=== PATIENT | female | born 1965 | race Caucasian/White ===

== ENCOUNTER 2017-11-11 18:45 | Emergency (ER) | payer BC, OTHER ==
[2017-11-11 18:58] VITALS: BP 139/77
[2017-11-11] MEDS ORDERED: Ketorolac 30 MG/ML SDV IVPUSH ONE (19:20)
--- NOTE | 2017-11-11 19:24 | EDM.PDOC ---
ED HPI GENERAL MEDICAL PROBLEM - General Chief Complaint: Chest Pain Stated Complaint: [id number] CHEST PAIN HEART FLUTTERING Time Seen by Provider: 11/11/17 19:22 Source of Information: Reports: Patient History Limitations: Reports: No Limitations - History of Present Illness INITIAL COMMENTS - FREE TEXT/NARRATIVE: gives few weeks h/o on-off sharp pain mid chest going to her back. hurts more @ night and deep breathing. today seems to be worse. Mid-Sternal Chest Pain Score (Numeric/FACES): 9 - Related Data Allergies Allergy/AdvReac Type Severity Reaction Status Date / Time fenofibrate Allergy Muscle Verified 11/11/17 19:02 Aches Penicillins Allergy Cannot Verified 11/11/17 19:02 Remember simvastatin Allergy Muscle Verified 11/11/17 19:02 Aches venlafaxine HCl Allergy Cannot Verified 11/11/17 19:02 [From Effexor] Remember Home Meds: Home Meds Estrogens, Conjugated [Premarin Vaginal Crm] 1 applic TOP ASDIRECTED PRN [History] Estrogens, Conjugated [Premarin] 0.3 mg PO DAILY 05/25/15 [History] Multivitamin [Multivitamins] 1 tab PO DAILY 05/25/15 [History] Red Yeast Rice 600 mg PO DAILY 05/25/15 [History] Ubidecarenone [Coenzyme Q10] 1 cap PO DAILY 05/25/15 [History] Aspirin [Adult Low Dose Aspirin EC] 81 mg PO DAILY 05/26/15 [History] Calcium Carbonate/Vitamin D3 [Calcium 600 + Vit D Tablet] 750 tab PO BID [History] Omeprazole 1 tab PO DAILY 05/27/15 [History] Past Medical History Other HEENT History: wears corrective lenses Other Cardiovascular History: HYPERLIPIDEMIA Other Gastrointestinal History: ALKALINE PHOSPHATE ELEVATION; gastric erosions Other OB/BYN History: ABNORMAL PAP SMEAR OF CERVIX - Past Surgical History GI Surgical History: Reports: Appendectomy, Cholecystectomy Other GI Surgeries/Procedures: CHOLANGIOGRAM Female Surgical History: Reports: Hysterectomy Other Female Surgeries/Procedures: CYSTOSCOPY; OVARIAN CYST DRAINAGE; ENDOMETRIAL BIOPSY Other Oncologic Surgeries/Procedures: SCREENING COLONOSCOPY Social & Family History - Tobacco Use Smoking Status *Q: Current Every Day Smoker Years of Tobacco use: 32 Packs/Tins Daily: 20 Used Tobacco, but Quit: No - Caffeine Use Caffeine Use: Reports: Coffee, Soda, Tea - Recreational Drug Use Recreational Drug Use: No ED ROS GENERAL - Review of Systems Review Of Systems: ROS reveals no pertinent complaints other than HPI. ED EXAM, GENERAL - Physical Exam Exam: See Below Exam Limited By: No Limitations General Appearance: Alert, WD/WN, Anxious, Mild Distress, Other (upset) Ears: Hearing Grossly Normal Throat/Mouth: Normal Voice, No Airway Compromise Head: Atraumatic Neck: Non-Tender, Full Range of Motion Respiratory/Chest: No Respiratory Distress, No Accessory Muscle Use, Rhonchi. No: Decreased Breath Sounds Cardiovascular: Regular Rate, Rhythm GI/Abdominal: Soft, Non-Tender Neurological: Alert, Oriented, Normal Cognition, Normal Gait, No Motor/Sensory Deficits Psychiatric: Anxious Skin Exam: Warm, Dry, Normal Color Lymphatic: No Adenopathy Course - Vital Signs Last Recorded V/S: Last Vital Signs Temp 37.1 C 11/11/17 18:48 Pulse 111 H 11/11/17 18:48 Resp 18 11/11/17 18:48 BP 139/77 11/11/17 18:48 Pulse Ox 98 11/11/17 18:48 - Orders/Labs/Meds Orders: Active Orders 24 hr Category Date Time Status EKG 12 Lead [EKG Documentation Completion] [RC] URGENT Care 11/11/17 18:51 Active Labs: Laboratory Tests 11/11/17 11/11/17 11/11/17 Range/Units 19:00 19:00 19:00 WBC 14.5 H (5.0-10.0) 10^3/uL RBC 4.25 (4.2-5.4) 10^6/uL Hgb 13.4 (12.0-16.0) g/dL Hct 40.4 (37.0-47.0) % MCV 95.1 (80-100) fL MCH 31.5 (27.0-34.0) pg MCHC 33.2 (33.0-35.0) g/dL Plt Count 316 (150-450) 10^3/uL Neut % (Auto) 36.4 L (42.2-75.2) % Lymph % (Auto) 54.7 H (20.5-50.1) % Payne % (Auto) 7.2 (2-8) % Eos % (Auto) 1.4 (1.0-3.0) % Baso % (Auto) 0.3 (0.0-1.0) % Add Manual Diff Yes Neutrophils % (Manual) 37 L (42-75) % Band Neutrophils % 2 % Lymphocytes % (Manual) 52 H (20-50) % Atypical Lymphs % 0 % Monocytes % (Manual) 7 (2-8) % Eosinophils % (Manual) 2 (1-3) % Basophils % (Manual) 0 D-Dimer, Quantitative < 100 (0-400) ng/mL Sodium 139 (135-145) mmol/L Potassium 3.2 L (3.6-5.0) mmol/L Chloride 106 (101-111) mmol/L Carbon Dioxide 24.0 (21.0-31.0) mmol/L Anion Gap 12.2 BUN 17 (7-18) mg/dL Creatinine 0.7 (0.6-1.3) mg/dL Est Cr Clr Drug Dosing 74.35 mL/min Estimated GFR (MDRD) > 60 BUN/Creatinine Ratio 24.28 Glucose 122 H (74-105) mg/dL Calcium 9.6 (8.4-10.2) mg/dl Total Bilirubin 0.5 (0.2-1.0) mg/dL AST 21 (10-42) IU/L ALT 24 (10-60) IU/L Alkaline Phosphatase 118 (42-121) IU/L Troponin I < 0.02 (0.00-0.02) ng/ml Total Protein 7.0 (6.7-8.2) g/dl Albumin 3.9 (3.2-5.5) g/dl Globulin 3.1 Albumin/Globulin Ratio 1.26 Meds: Medications Discontinued Medications Generic Name Dose Route Start Last Admin Trade Name Freq PRN Reason Stop Dose Admin Al Hydroxide/Mg Hydroxide 30 ml 11/11/17 19:51 11/11/17 19:56 Gi Cocktail PO 11/11/17 19:52 30 ml ONETIME ONE Administration Ketorolac Tromethamine 15 mg 11/11/17 19:20 11/11/17 19:25 Toradol IVPUSH 11/11/17 19:21 15 mg ONETIME ONE Administration Pantoprazole Sodium 40 mg 11/11/17 20:51 11/11/17 20:58 Protonix Iv IVPUSH 11/11/17 20:52 40 mg ONETIME ONE Administration - Re-Assessments/Exams Free Text/Narrative Re-Assessment/Exam: 11/11/17 19:46 s/p IV toradol = better but still some sternal pain 11/11/17 21:26 s/p GI cocktail = much better now prefers home. Departure - Departure Time of Disposition: 21:27 Disposition: Home, Self-Care 01 Condition: Good Clinical Impression: GERD (gastroesophageal reflux disease) Qualifiers: Esophagitis presence: with esophagitis Qualified Code(s): K21.0 - Gastro- esophageal reflux disease with esophagitis Instructions: Food Choices for Gastroesophageal Reflux Disease, Adult, Easy-to- Read Forms: ED Department Discharge Additional Instructions: 1) rest and avoid stressful situations 2) recheck if there is any change or concern - My Orders Last 24 Hours: My Active Orders 11/11/17 18:51 EKG 12 Lead [EKG Documentation Completion] [RC] URGENT - Assessment/Plan Last 24 Hours: My Active Orders 11/11/17 18:51 EKG 12 Lead [EKG Documentation Completion] [RC] URGENT
[2017-11-11 19:31] LABS: ANION GAP 12.2; CHLORIDE,CL 106 mmol/L (101-111); SODIUM,NA 139 mmol/L (135-145)
[2017-11-11] MEDS ORDERED: GI Cocktail Oral Solution 30 ML PO ONE (19:51)
[2017-11-11] MEDS ORDERED: Pantoprazole 40 MG Vial IVPUSH ONE (20:51)
--- NOTE | 2017-11-14 13:48 | EKG ---
11/11/2017- JENNY MEDINA - FINDINGS: EKG, per my reading, shows sinus tachycardia at the rate of one teens. MOD /[id number]
== END 2017-11-11 21:33 | disposition home or self-care (01) ==
LOC: DL.ED 18:45
DX: K21.0 Gastro-esophageal reflux disease with esophagitis (principal); E78.5 Hyperlipidemia, unspecified; F17.210 Nicotine dependence, cigarettes, uncomplicated; Z88.0 Allergy status to penicillin; Z88.8 Allergy status to other drugs, medicaments and biological substances; Z79.82 Long term (current) use of aspirin; Z79.899 Other long term (current) drug therapy; Z90.710 Acquired absence of both cervix and uterus; Z90.49 Acquired absence of other specified parts of digestive tract
CPT/HCPCS: 36415; 71045; 80053; 84484; 85025; 85379; 93005; 96374; 96375; 99285; A9270; C9113; J1885

== ENCOUNTER 2021-06-03 09:35 | Emergency (ER) | payer BC ==
--- NOTE | 2021-06-03 09:48 | EDM.PDOC ---
ED HPI GENERAL MEDICAL PROBLEM - General Chief Complaint: Laceration Stated Complaint: LACERATED HAND Time Seen by Provider: 06/03/21 09:47 Source of Information: Reports: Patient, RN, RN Notes Reviewed History Limitations: Reports: No Limitations - History of Present Illness INITIAL COMMENTS - FREE TEXT/NARRATIVE: Pt presents to ER with c/o cut to left hand with a knife while cutting squash. Denies any other injury. Last Tetanus vaccine unknown, but estimated to be >8yrs, maybe more. Onset: Today, Sudden Duration: Constant Quality: Reports: Ache Severity: Mild Improves with: Reports: None Worsens with: Reports: None Associated Symptoms: Reports: No Other Symptoms - Related Data Allergies Allergy/AdvReac Type Severity Reaction Status Date / Time fenofibrate Allergy Muscle Verified 11/11/17 19:02 Aches Penicillins Allergy Cannot Verified 11/11/17 19:02 Remember simvastatin Allergy Muscle Verified 11/11/17 19:02 Aches venlafaxine HCl Allergy Cannot Verified 11/11/17 19:02 [From Effexor] Remember Home Meds: Home Meds Estrogens, Conjugated [Premarin Vaginal Crm] 1 applic TOP ASDIRECTED PRN 05/25/15 [History] Estrogens, Conjugated [Premarin] 0.3 mg PO DAILY 05/25/15 [History] Multivitamin [Multivitamins] 1 tab PO DAILY 05/25/15 [History] Red Yeast Rice 600 mg PO DAILY 05/25/15 [History] Ubidecarenone [Coenzyme Q10] 1 cap PO DAILY 05/25/15 [History] Aspirin [Adult Low Dose Aspirin EC] 81 mg PO DAILY 05/26/15 [History] Calcium Carbonate/Vitamin D3 [Calcium 600 + Vit D Tablet] 750 tab PO BID 05/26/15 [History] Omeprazole 1 tab PO DAILY 05/27/15 [History] Past Medical History Other HEENT History: wears corrective lenses Other Cardiovascular History: HYPERLIPIDEMIA Other Gastrointestinal History: ALKALINE PHOSPHATE ELEVATION; gastric erosions 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: ABNORMAL PAP SMEAR OF CERVIX - Past Surgical History GI Surgical History: Reports: Appendectomy, Cholecystectomy Other GI Surgeries/Procedures: CHOLANGIOGRAM Female Surgical History: Reports: Hysterectomy Other Female Surgeries/Procedures: CYSTOSCOPY; OVARIAN CYST DRAINAGE; ENDOMETRIAL BIOPSY Other Oncologic Surgeries/Procedures: SCREENING COLONOSCOPY Social & Family History - Family History Family Medical History: No Pertinent Family History - Caffeine Use Caffeine Use: Reports: Coffee, Soda, Tea Review of Systems - Review of Systems Review Of Systems: Comprehensive ROS is negative, except as noted in HPI. ED EXAM, GENERAL - Physical Exam Exam: See Below Exam Limited By: No Limitations General Appearance: Alert, WD/WN, No Apparent Distress Respiratory/Chest: No Respiratory Distress Cardiovascular: Normal Peripheral Pulses Extremities: Other (2cm linear laceration to depth of subcutaneous tissue at left had at 1st/2nd digit interspace, no active bleeding, no FB) Psychiatric: Normal Affect, Normal Mood Skin Exam: Warm, Dry ED TRAUMA EXTREMITY PROCEDURES - Laceration/Wound Repair Left Hand Lac/Wound Length In cm: 2 Appearance: Subcutaneous, Linear, Clean Distal NVT: Neuro & Vascular Intact, No Tendon Injury Anesthetic Type: Local Local Anesthesia - Lidocaine (Xylocaine): 1% Plain Local Anesthetic Volume: 5cc Skin Prep: Chlorhexidine (Hibiciens), Saline, Sterile Drape Saline Irrigation (cc's): 500 Exploration/Debridement/Repair: Wound Explored, In a Bloodless Field, Explored to Base, Minimal Debridement, Minimally Undermined Closed With: Sutures Suture Size: 4-0 # of Sutures: 5 Suture Type: Nylon, Interrupted Drain Placement: No Sterile Dressing Applied: Nurse Tetanus Status Addressed: Yes Complications: No Course - Orders/Labs/Meds Orders: Active Orders 24 hr Category Date Time Status Vaccine to be Administered/Admin Charge [RC] ASDIRECTED Care 06/03/21 09:50 Ordered Bacitracin [Bacitracin Oint 1 GM] Med 06/03/21 09:49 Once 1 dose TOP ONETIME ONE Diphth,Pertuss(Acell),Tet Vac [Boostrix] Med 06/03/21 09:50 Once 0.5 ml IM .ONCE ONE Lidocaine 1% [Xylocaine-MPF 1%] Med 06/03/21 09:49 Once 30 ml INJECT ONETIME ONE Departure - Departure Time of Disposition: 09:53 Disposition: Home, Self-Care 01 Condition: Good Clinical Impression: Laceration of left hand Qualifiers: Encounter type: initial encounter Foreign body presence: without foreign body Qualified Code(s): S61.412A - Laceration without foreign body of left hand, initial encounter - Discharge Information *PRESCRIPTION DRUG MONITORING PROGRAM REVIEWED*: No *COPY OF PRESCRIPTION DRUG MONITORING REPORT IN PATIENT MG: No Instructions: Laceration Care, Adult Forms: ED Department Discharge Additional Instructions: Follow up in clinic in 7 to 10 days for suture removal. Return to ER or go to clinic if any signs of wound infection develop. - My Orders Last 24 Hours: My Active Orders 06/03/21 09:49 Bacitracin [Bacitracin Oint 1 GM] 1 dose TOP ONETIME ONE Lidocaine 1% [Xylocaine-MPF 1%] 30 ml INJECT ONETIME ONE 06/03/21 09:50 Vaccine to be Administered/Admin Charge [RC] ASDIRECTED DiphjaquelinPertuss(Acell),Tet Vac [Boostrix] 0.5 ml IM .ONCE ONE - Assessment/Plan Last 24 Hours: My Active Orders 06/03/21 09:49 Bacitracin [Bacitracin Oint 1 GM] 1 dose TOP ONETIME ONE Lidocaine 1% [Xylocaine-MPF 1%] 30 ml INJECT ONETIME ONE 06/03/21 09:50 Vaccine to be Administered/Admin Charge [RC] ASDIRECTED DiphthPertuss(Acell),Tet Vac [Boostrix] 0.5 ml IM .ONCE ONE
[2021-06-03] MEDS ORDERED: Bacitracin Oint 1 GM U/D Packet TOP ONE (09:49)
[2021-06-03] MEDS ORDERED: Lidocaine 1% 30 ML SDV INJECT ONE (09:49)
[2021-06-03] MEDS ORDERED: Diphtheria,Pertussis(Acell),Tetanus Vaccine 0.5 ML Syringe IM ONE (09:50)
[2021-06-03 10:35] VITALS: BP 132/91; PULSE 89
== END 2021-06-03 10:34 | disposition home or self-care (01) ==
LOC: DL.ED 09:35
DX: S61.412A Laceration without foreign body of left hand, initial encounter (principal); Z88.0 Allergy status to penicillin; Z88.8 Allergy status to other drugs, medicaments and biological substances; Z79.82 Long term (current) use of aspirin; Z79.899 Other long term (current) drug therapy; Z23 Encounter for immunization; W26.0XXA Contact with knife, initial encounter
CPT/HCPCS: 12001; 90471; 90715; 99282-25

== ENCOUNTER → 2024-12-02 | Day surgery (SDC) | payer BC ==
[~2024-12-02] MED LIST: Lactated Ringers 1,000 ML IV ONE; Lidocaine 2% 20 ML MDV NERVRT ONE; Propofol 200 MG/20 ML SDV IV ONE
[2024-12-02] MEDS: Lactated Ringers 1,000 ML IV SCH (08:00)
[2024-12-02 09:49] VITALS: BP 134/66; PULSE 68
== END ==
LOC: DL.ENDO 07:23
PROVIDERS: ATTEND Internal Medicine Gastroenterology
DX: K31.7 Polyp of stomach and duodenum (principal); K31.89 Other diseases of stomach and duodenum; K21.9 Gastro-esophageal reflux disease without esophagitis; E78.5 Hyperlipidemia, unspecified; Z88.8 Allergy status to other drugs, medicaments and biological substances; Z88.0 Allergy status to penicillin
CPT/HCPCS: 43239; J7120; J2003; J2704

== ENCOUNTER 2024-12-13 07:24 | Day surgery (SDC) | payer BC ==
[~2024-12-13 07:24] MED LIST changes: -Lactated Ringers 1,000 ML IV ONE; -Lidocaine 2% 20 ML MDV NERVRT ONE; -Propofol 200 MG/20 ML SDV IV ONE; +Propofol 200 MG/20 ML SDV ONE
[2024-12-13] MEDS ORDERED: Propofol 200 MG/20 ML SDV IV ONE (07:25)
[2024-12-13] MEDS ORDERED: Lactated Ringers 1,000 ML IV ONE (07:25)
[2024-12-13] MEDS ORDERED: Lidocaine 2% 20 ML MDV NERVRT ONE (07:25)
[2024-12-13] MEDS: Lactated Ringers 1,000 ML IV SCH (08:06)
[2024-12-13 11:14] VITALS: BP 117/67; PULSE 74
== END 2024-12-13 10:37 | disposition home or self-care (01) ==
LOC: DL.ENDO 07:24
PROVIDERS: ATTEND Internal Medicine Gastroenterology
DX: Z12.11 Encounter for screening for malignant neoplasm of colon (principal); E78.5 Hyperlipidemia, unspecified; J43.9 Emphysema, unspecified; Z79.899 Other long term (current) drug therapy
CPT/HCPCS: 45378; J2003; J2704; J7120